=== PATIENT | male | born 1970 | race Caucasian/White ===

== ENCOUNTER → 2018-06-04 | Outpatient (CLI) | payer OTHER ==
[~2018-06-04] MED LIST: ACET-1311 PO; ATOR-22 PO; FLUC150T PO; METF750T PO; NICO4GUM7 OR; POTA75TA PO
== END | disposition home or self-care (01) ==
LOC: C.PATHSPEC 17:30
PROVIDERS: ATTEND Surgery
DX: L72.11 Pilar cyst (principal)

== ENCOUNTER → 2018-06-19 | Day surgery (SDC) | payer OTHER ==
[2018-06-16 11:59] VITALS: Ht 180.3 cm; Wt 127.3 kg
[~2018-06-19] VITALS: Ht 180.3 cm; Wt 127.3 kg
[~2018-06-19] MED LIST changes: +LIDOCAINE HCL 2% 2 ML VIAL (20MG/ML) ONE; +PROPOFOL IV EMULSION 10 MG/ML 20 ML VIAL ONE; +SODIUM CHLORIDE 0.9% 500ML 500 ML IV ONE
--- NOTE | 2018-06-19 13:42 | Endo History and Physical ---
History & Physical Date of Service: Jun 19, 2018. Chief Complaint: Rectal bleeding, blood in stool Referring Physician: Dr. Shorty Norman History of Present Illness 47 yo CM who presents for colonoscopy secondary to rectal bleeding. Past Surgical History Hx Cardiac Surgery: No Hx Internal Defibrillator: No Hx Pacemaker: No Hx Abdominal Surgery: No Hx of Implantable Prosthesis: No Hx Post-Op Nausea and Vomiting: No Hx Cancer Surgery: No Hx Thoracic Surgery: No Hx Orthopedic: No Hx Urinary Tract Surgery: No Family History Polyp Social History Smoking Status: Current Some Day Smoker Hx Substance Use: No (SOBER 26 YRS ) Hx Alcohol Use: No (SOBER 26 YRS) Allergies Coded Allergies: Penicillins (Verified Allergy, Mild, RASH, 06/16/18) Current Medications Reported Home Medications Medications Dose Route/Sig Max Daily Dose Days Date Category Nicorette (Nicotine Polacrilex) 4 Mg Gum 1 Piece OR DAILY 06/16/18 Reported Potassium 75 Mg Tab 1 Tab PO DAILY PRN 06/16/18 Reported Glucophage Er (Metformin Hcl) 750 Mg Tab 750 Mg PO QDD 06/16/18 Reported Diflucan (Fluconazole) 150 Mg Tab 150 Mg PO WK 06/16/18 Reported Lipitor (Atorvastatin Calcium) 20 Mg Tab 20 Mg PO QPM 06/16/18 Reported Tylenol (Acetaminophen) 325 Mg Tab 325 Mg PO DAILY PRN 06/16/18 Reported Vital Signs Weight (Kilograms): 127.27 Height (Feet): 5 Height (Inches): 11 Physical Exam General Appearance: WD/WN, no apparent distress Respiratory/Chest: Auscultation: breath sounds normal Cardiovascular: Heart Auscultation: RRR Abdomen: Bowel Sounds: normal Inspection & Palpation: soft, non-distended, no tenderness, guarding & rebound Assessment and Plan Assessment: 47 yo CM who presents for colonoscopy secondary to rectal bleeding. Plan: Proceed with colonoscopy.
--- NOTE | 2018-06-19 15:14 | Discharge Instructions ---
Endoscopy Patient Instructions Date / Procedure(s) Performed Jun 19, 2018. Colonoscopy Allergy Information Coded Allergies: Penicillins (Verified Allergy, Mild, RASH, 06/16/18) Discharge Date / Findings Jun 19, 2018. Multiple colon polyps Internal hemorrhoids Medication Instructions OK to resume all medications today as prescribed Reported Home Medications Medications Dose Route/Sig Max Daily Dose Days Date Category Nicorette (Nicotine Polacrilex) 4 Mg Gum 1 Piece OR DAILY 06/16/18 Reported Potassium 75 Mg Tab 1 Tab PO DAILY PRN 06/16/18 Reported Glucophage Er (Metformin Hcl) 750 Mg Tab 750 Mg PO QDD 06/16/18 Reported Diflucan (Fluconazole) 150 Mg Tab 150 Mg PO WK 06/16/18 Reported Lipitor (Atorvastatin Calcium) 20 Mg Tab 20 Mg PO QPM 06/16/18 Reported Tylenol (Acetaminophen) 325 Mg Tab 325 Mg PO DAILY PRN 06/16/18 Reported Provider Instructions Activity Restrictions - No exercising or heavy lifting for 24 hours. - Do not drink alcohol the day of the procedure. - Do not drive a car or operate machinery until the day after the procedure. - Do not make any important decisions or sign important papers in 24 hours after the procedure. Following Day: - Return to full activity which may include returning to work/school. Diet Start your diet with liquids and light foods (jello, soup, juice, toast). Then eat your usual diet if not nauseated. Treatment For Common After Affects For mild abdominal pain, bloating, or excessive gas: - Rest - Eat lightly - Lie on right side Follow-Up Information Follow-up with Dr. Shorty Norman as scheduled Anesthesia Information What You Should Know You have had a procedure that required some medicine to reduce anxiety and discomfort. This treatment is called moderate sedation. After receiving the treatment, you may be sleepy, but you will be able to breathe on your own. The effects of the treatment may last for several hours. Follow these instructions along with Activity/Diet recommendations noted above: * Do NOT do anything where dizziness or clumsiness would be dangerous. * Rest quietly at home today, then you can be up and about tomorrow. * Have a responsible person stay with you the rest of today. * You may have had an I.V. today. If so, you may take the dressing off later today. Recommendations Call your doctor if: * Trouble breathing * Continuous vomiting for more than 24 hours * Temperature above 101 degrees * Severe abdominal pain or bloating * Pain not relieved by pain medicine ordered * There is increased drainage or redness from any incision * A large amount of rectal bleeding greater than 2-3 tablespoons. (If you had a polyp/s removed or have hemorrhoids, a small amount of blood - from the rectum is to be expected.) * You have any unanswered questions or concerns. IN THE EVENT OF A SERIOUS EMERGENCY, GO TO THE NEAREST EMERGENCY ROOM Your discharge instructions were prepared by provider Jarod Fernandes. Patient Instructions Signature Page Capo Eldridge Patient (or Guardian) Signature/Date: I have read and understand the instructions given to me by my caregivers. Caregiver/RN/Doctor Signature/Date: The above-named patient and/or guardian has received patient instructions on this date. + Original Patient Signature Page (only) stays with chart. Please make copy for patient.
--- NOTE | 2018-06-19 15:22 | GI REPORT ---
Patient Name: Capo Eldridge Procedure Date: 06/19/2018 2:02 PM Date of : 1970 Admit Type: Outpatient Age: 47 Gender: Male Attending MD: Jarod Fernandes DO Procedure: Colonoscopy Providers: Jarod Fernandes DO Referring MD: Shorty Norman Indications: Rectal bleeding Medicines: Monitored Anesthesia Care Complications: No immediate complications. Estimated Blood Loss: Estimated blood loss: none. Procedure: Pre-Anesthesia Assessment: - Prior to the procedure, a History and Physical was performed, and patient medications and allergies were reviewed. The patient's tolerance of previous anesthesia was also reviewed. The risks and benefits of the procedure and the sedation options and risks were discussed with the patient. All questions were answered, and informed consent was obtained. Prior Anticoagulants: The patient has taken no previous anticoagulant or antiplatelet agents. ASA Grade Assessment: II - A patient with mild systemic disease. After reviewing the risks and benefits, the patient was deemed in satisfactory condition to undergo the procedure. After I obtained informed consent, the scope was passed under direct vision. Throughout the procedure, the patient's blood pressure, pulse, and oxygen saturations were monitored continuously. The scope was introduced through the anus and advanced to the terminal ileum. The colonoscopy was technically difficult and complex due to the patient's body habitus. The patient tolerated the procedure well. The quality of the bowel preparation was good. The terminal ileum, ileocecal valve, appendiceal orifice, and rectum were photographed. Findings: The perianal and digital rectal examinations were normal. Nineteen flat, pedunculated and sessile polyps were found in the rectum, sigmoid colon, descending colon, transverse colon and ascending colon. The polyps were 5 to 30 mm in size. These polyps were removed with a hot snare, both regular and jumbo sized. Resection and retrieval were complete with the aid of a freire net. Non-bleeding internal hemorrhoids were found during retroflexion. The hemorrhoids were small. Impression: - Ten 5 to 30 mm polyps in the rectum, in the sigmoid colon, in the descending colon, in the transverse colon and in the ascending colon, removed with a hot snare. Resected and retrieved. - Non-bleeding internal hemorrhoids. Recommendation: - Resume previous diet. - Continue present medications. - Repeat colonoscopy in 6 months for surveillance. - Return to primary care physician as previously scheduled. Jarod Fernandes, DO 06/19/2018 3:21:47 PM This report has been signed electronically. Note Initiated On: 06/19/2018 2:02 PM Number of Addenda: 0 I attest to the content of the Intraoperative Record and orders documented therein, exceptions below {[id number]}
--- NOTE | 2018-06-19 15:39 | Anesthesiology Progress Note ---
Anesthesia Post Op Note Date & Time Jun 19, 2018 at 15:39 Vital Signs Pain Intensity: 0 Vital Signs Past 12 Hours Date Time Temp Pulse Resp B/P (MAP) Pulse Ox O2 Delivery O2 Flow Rate FiO2 06/19/18 15:31 69 16 133/94 (107) 100 Room Air 06/19/18 15:14 77 16 128/81 (97) 98 Room Air 06/19/18 13:39 37 64 16 160/92 (114) 99 Room Air Notes Mental Status: alert / awake / arousable, participated in evaluation Pt Amnestic to Procedure: Yes Nausea / Vomiting: adequately controlled Pain: adequately controlled Airway Patency, RR, SpO2: stable & adequate BP & HR: stable & adequate Hydration State: stable & adequate Anesthetic Complications: no major complications apparent
[2018-06-19 15:45] VITALS: BP 139/81; PULSE 67; O2SAT 99
== END | disposition home or self-care (01) ==
LOC: C.GI 12:51
PROVIDERS: ATTEND Internal Medicine
DX: K62.5 Hemorrhage of anus and rectum (principal); D12.2 Benign neoplasm of ascending colon; D12.3 Benign neoplasm of transverse colon; D12.4 Benign neoplasm of descending colon; D12.5 Benign neoplasm of sigmoid colon; D12.8 Benign neoplasm of rectum; K64.8 Other hemorrhoids; E78.5 Hyperlipidemia, unspecified; F17.200 Nicotine dependence, unspecified, uncomplicated; K21.9 Gastro-esophageal reflux disease without esophagitis; E11.9 Type 2 diabetes mellitus without complications; Z88.0 Allergy status to penicillin

== ENCOUNTER 2025-01-31 16:35 | Observation (INO) ==
[2025-01-31 17:28] LABS: Basophils # (auto) 0.06 K/uL (0.00-0.20); Basophils % (auto) 0.6 %; Eosinophils # (auto) 0.24 K/uL (0.00-0.50); Eosinophils % (auto) 2.2 %; Hematocrit (blood only) 31.6 % (42.0-52.0); Hemoglobin 10.6 g/dl (14.0-18.0); Immature Granulocytes # (auto) 0.02 K/uL (0.01-0.20); Immature Granulocytes % (auto) 0.2 %; Lymphocytes # (auto) 2.88 K/uL (1.20-3.40); Lymphocytes % (auto) 26.7 %; Mean Corpuscular Hemoglobin 29.3 pg (25.0-34.0); Mean Corpuscular Hgb Conc 33.5 g/dL (32.0-36.0); Mean Corpuscular Volume 87.3 fL (80.0-100.0); Mean Platelet Volume 10.3 fL (9.4-12.4); Monocytes # (auto) 0.52 K/uL (0.11-0.59); Monocytes % (auto) 4.8 %; Neutrophils # (auto) 7.08 K/uL (1.40-6.50); Neutrophils % (auto) 65.5 %; Platelet Count 364 K/uL (130-400); RDW Coefficient of Variation 13.7 % (11.5-14.5); RDW Standard Deviation 43.8 fL (36.4-46.3); Red Blood Count 3.62 M/uL (4.70-6.10)
--- NOTE | 2025-01-31 17:40 | Emergency Department Note ---
Impression & Plan MAITE (acute kidney injury), Acute urinary retention, Abdominal pain, Anemia ED Provider Note NAME: GUMARO WATT AGE: 54 SEX: M : 1970 ARRIVES VIA: Walk-In INFORMANT: Patient ED PROVIDER(S): Adolfo Peña DO CHIEF COMPLAINT: Renal failure HPI: Patient is a 54-year-old male with a past medical history of diabetes, Raynaud's, hyperlipidemia, and obesity who presents to the ER referred in by his PCP for abnormal creatinine. He notes that over the past 2 months he has been having urinary urgency, frequency and overflow. He denies any headache or change in vision. No chest pain or shortness of breath. No nausea, vomiting, or diarrhea. He notes that he just had routine blood work and found the kidney failure and was referred in. ADDITIONAL HISTORY OBTAINED: Per HPI Chronic Medical/Social Conditions Affecting Care: Per HPI PAST MEDICAL HISTORY:See Below PAST SURGICAL HISTORY:See Below FAMILY HISTORY:See Below SOCIAL HISTORY:See Below HOME MEDICATIONS:See Below ALLERGIES:See Below VITALS:See Below PHYSICAL EXAMINATION: GENERAL: Sitting up in bed, alert, well appearing, well nourished, no distress, non-toxic EYE EXAM: normal conjunctiva. OROPHARYNX:mucous membranes are moist NECK: supple, no nuchal rigidity, no adenopathy, non-tender LUNGS: Clear to auscultation. Normal chest wall mechanics HEART: no murmurs, S1 normal and S2 normal ABDOMEN: abdomen soft, non-tender, normo-active bowel sounds, no masses, no rebound or guarding. UPPER EXTREMITIES: upper extremities are grossly normal. LOWER EXTREMITIES: No pitting edema. NEURO EXAM: Normal sensorium, cranial nerves II-XII grossly intact, normal speech, no gross weakness of arms, no gross weakness of legs. MEDICAL DECISION MAKING: Patient is a 54-year-old male who presents ER for the below stated complaint. IV was established blood work was obtained. Labs show no significant leukocytosis. Mild anemia 10.6. BMP with a creatinine of 2.15 up from baseline of 0.89. LFTs and bilirubin were unremarkable. Bladder scan showed greater than [address] head and pelvis showed distention of the bladder and ureters. Bo was placed and patient had nearly 3 L out. He was given IV fluids. He was updated bedside. Discussed case with Dr. varela for further evaluation management treatment and admission to the hospital. Patient was admitted for further workup. Consults/Care Managements Discussions: Per MDM Triage Nursing notes reviewed. Limited review of prior medical records performed Vital Signs: reviewed and remarkable for HTN Differential diagnosis: Infection, dehydration, metabolic abnormality, hypo/hyperglycemia, electrolyte disturbance, anemia, hypoxia, cardiac sources, intracerebral event, toxicologic, neurologic, as well as other pathologies. ER treatment provided: See below Diagnostics interpreted by me include EKG and cardiac monitoring as listed below: -Cardiac Monitoring: An order was placed for continuous cardiac monitoring. The monitor shows a rate of 80 with sinus rhythm. -ECG: none -Laboratory studies:Interpreted by me as stated above in MDM and shown below. Imaging studies: Xrays: As interpreted by me:none CTs show: CT abdomen pelvis per my pleurae interpretation showed a significantly distended bladder CT of the pelvis per radiologist described above Procedures:none Critical Care: None Past Med/Surg History Problem List (Updated 01/31/25 @ 22:30 by Adolfo Peña DO) Anemia (Acute) Abdominal pain (Acute) Acute urinary retention (Acute) MAITE (acute kidney injury) (Acute) Obstructive uropathy Diabetes Raynaud phenomenon Hematuria MENDEZ (dyspnea on exertion) Benign essential hypertension Elevated PSA Ventricular trigeminy Hypertriglyceridemia Vitamin D deficiency History of colon polyps Change in pigmented skin lesion of face Decreased libido BPH (benign prostatic hyperplasia) Recurrent cold sores Adult situational stress disorder Testosterone deficiency Type II diabetes mellitus (Chronic) Obesity Intertrigo Hyperlipidemia Alopecia Medical History (Updated 01/31/25 @ 22:30 by Adolfo Peña DO) Vitamin D deficiency Ventricular trigeminy follows with Dr. Sahni Recurrent cold sores BPH (benign prostatic hyperplasia) History of COVID-19 2021---mild symptoms, no symptoms now Pneumonia hx--resolved Hypertension History of colon polyps Diabetes mellitus, type 2 Hearing deficit 25% loss in left/35% loss in right Anxiety no meds Migraine Hyperlipidemia Surgical History (Updated 01/24/25 @ 07:50 by Lisbeth Tomlinson RN) Status post incision and drainage (01/20/25) I and D right posterior shoulder cyst, in office Dr. Cole FINAL DIAGNOSIS Skin, back (excision): - An inflamed epidermal cyst with focal abscess formation adjacent to the wall of the cyst is seen History of prostate biopsy per pt benign History of colonoscopy History of wisdom tooth extraction History of tonsillectomy Family History Father Family hx colonic polyps Hypertension Mother Family hx colonic polyps Uncle Family hx colonic polyps Stroke Colon cancer Grandmother (Maternal) Myocardial infarction Grandfather (Maternal) Myocardial infarction Sister Myeloproliferative disease Other No family history of adverse response to anesthesia Denies family history of Ovarian cancer Prostate cancer Breast cancer Social History (Updated 01/20/25 @ 09:28 by Lisbeth Tomlinson RN) Smoking Status: Former smoker Tobacco Type: Cigarettes and Smokeless Tobacco (Dip or Chew) Age Started Using Tobacco: 13; Age Quit Using Tobacco: 47; packs per day: 1; Second Hand Exposure: No (parents smoked); Do You Dip or Chew Tobacco: Yes (nicotine pouches (advised on policy)); Hx Alcohol Use: No Hx Substance Use: Yes Non-Prescribed Medications: Marijuana Preferred Language: Belarusian Communication Ability: Effective Visual Impairment: No Limitations Hearing Ability: Hard of Hearing Police Service Technician Required: No Beliefs That Will Affect Care: None marital status: Current Living Situation: Alone Current Living Situation Comment: Lives with child periodically current occupational status: employed current occupation: [employer]/ [employer] How many Children do You have: 0 Feels Safe at Home: Yes Childhood Exposure to Second-Hand Smoke: Yes Diet: low carbohydrate caffeine: Yes during the past year weight has: decreased > 10 lbs Dental Care, Regularly: Yes Physical Activity Frequency: 5-6 Times per Week Seatbelt Use: always Sunscreen Use: Yes Allergies Allergies Allergy/AdvReac Type Severity Reaction Status Date / Time Penicillins Allergy Mild RASH Verified 01/31/25 18:38 Home Meds Home Medications Medication Instructions Recorded Confirmed diphenhydramine 25 2 tab PO HS 12/04/18 01/31/25 mg-acetaminophen 500 mg tablet (Acetaminophen PM) cyanocobalamin (vitamin B-12) 1,000 mcg PO QAM #30 caps 08/25/19 01/31/25 1,000 mcg capsule blood sugar diagnostic (OneTouch #10 ea 01/16/21 01/18/25 Verio test strips) cholecalciferol (vitamin D3) 125 125 mcg PO QAM 10/01/21 01/31/25 mcg (5,000 unit) capsule multivitamin 1 tab PO QAM 10/01/21 01/31/25 metformin 500 mg tablet,extended 1,000 mg PO BID 01/31/25 01/31/25 release 24 hr semaglutide 1 mg/dose (4 mg/3 mL) 1 mg subcut WK 01/31/25 01/31/25 subcutaneous pen injector valacyclovir 1 gram tablet 2,000 mg PO DIRECTED PRN 01/31/25 01/31/25 Outbreak Previous Rx's Medication Instructions Recorded pen needle, diabetic 31 gauge x #50 ea 10/01/2101/30" (Comfort EZ Pen Martinez) finasteride 5 mg tablet 5 mg PO DAILY #90 tabs 08/31/24 atorvastatin 20 mg tablet 20 mg PO HS #90 tabs 11/03/24 tamsulosin 0.4 mg capsule 0.4 mg PO HS #90 caps 11/03/24 amlodipine 5 mg tablet 5 mg PO DAILY #90 tabs 01/18/25 Results & Data (ED) Vital Signs Vital Signs - 24 hr 01/31/25 16:43 01/31/25 19:10 Temperature 36.7 C Temperature Source Skin Pulse Rate 76 Pulse Rate [Apical] 75 Respiratory Rate 20 16 Respiratory Effort / Characteristics Non-Labored Spontaneous Respiratory Depth Normal Blood Pressure 201/105 H Blood Pressure [Right Arm] 183/113 H Blood Pressure Mean 137 Blood Pressure Mean [Right Arm] 136 Pulse Oximetry 97 100 Oxygen Delivery Method Room Air Room Air Sepsis New/Unexplained Change in Mental Status N/A Sepsis Action Taken by Nursing No Action Required Laboratory Data 01/31/25 17:05 01/31/25 17:05 Lab Results 01/31/25 Range/Units 17:05 WBC 10.80 (4.8-10.8) K/ul RBC 3.62 L (4.70-6.10) M/uL Hgb 10.6 L (14.0-18.0) g/dl Hct 31.6 L (42.0-52.0) % MCV 87.3 (80.0-100.0) fL MCH 29.3 (25.0-34.0) pg MCHC 33.5 (32.0-36.0) g/dL RDW Std Deviation 43.8 (36.4-46.3) fL RDW Coeff of Chaz 13.7 (11.5-14.5) % Plt Count 364 (130-400) K/uL MPV 10.3 (9.4-12.4) fL Immature Gran % (Auto) 0.2 % Neut % (Auto) 65.5 % Lymph % (Auto) 26.7 % Randall % (Auto) 4.8 % Eos % (Auto) 2.2 % Baso % (Auto) 0.6 % Neut # (Auto) 7.08 H (1.40-6.50) K/uL Lymph # (Auto) 2.88 (1.20-3.40) K/uL Randall # (Auto) 0.52 (0.11-0.59) K/uL Eos # (Auto) 0.24 (0.00-0.50) K/uL Baso # (Auto) 0.06 (0.00-0.20) K/uL Immature Gran # (Auto) 0.02 (0.01-0.20) K/uL Sodium 137 (136-145) mmol/L Potassium 4.1 (3.5-5.1) mmol/L Chloride 104 (98-107) mmol/L Carbon Dioxide 24 (21-32) mmol/L Anion Gap 9 (3-11) BUN 33 H (6-23) mg/dl Creatinine 2.15 H (0.6-1.4) mg/dl Est Cr Clr Drug Dosing 46.9 ml/min eGFR 35.69 BUN/Creatinine Ratio 15.3 (10-20) Glucose 79 (70-99(Fasting)) mg/dl Calcium 9.5 (8.6-10.3) mg/dl Total Bilirubin 0.2 (0.2-1.0) mg/dl AST 17 (13-39) U/L ALT 15 (7-52) U/L Alkaline Phosphatase 73 (34-104) U/L Total Protein 7.5 (6.0-8.3) gm/dl Albumin 4.7 (3.4-5.0) gm/dl Globulin 2.8 (2.5-4.0) gm/dl Albumin/Globulin Ratio 1.7 (0.9-2) Administered Medications Acetaminophen (Acetaminophen 325 Mg Tab) 650 mg PO Q4H PRN PRN Reason: pain/fever Stop: 03/02/25 19:47 Last Admin: 01/31/25 22:04 Dose: 650 mg Documented By: POP Atorvastatin Calcium (Atorvastatin 20 Mg Tab) 20 mg PO HS RISHI Stop: 03/02/25 21:12 Last Admin: 01/31/25 21:50 Dose: 20 mg Documented By: POP Insulin Aspart (Insulin Aspart Per Unit Charge) 0 units SC ACHS RISHI Stop: 03/02/25 21:12 Last Admin: 01/31/25 22:20 Dose: Not Given Documented By: POP Co-signed By: DEONDRE Tamsulosin HCl (Tamsulosin Hcl 0.4 Mg Cap) 0.4 mg PO HS RISHI Stop: 03/02/25 21:12 Last Admin: 01/31/25 21:50 Dose: 0.4 mg Documented By: POP Discontinued Medications Sodium Chloride (Nss) 1,000 mls @ 999 mls/hr IV .Q1H1M ONE Stop: 01/31/25 18:36 Last Infusion: 01/31/25 20:33 Dose: Infused Documented By: Admin: 01/31/25 18:17 Dose: 999 mls/hr Documented By: UBALDO Imaging Data Radiologist's Impression: Abdomen/Pelvis CT 01/31/25 17:35 Clinical History: Elevated creatinine Technique: Axial computed tomography images were obtained of the abdomen and pelvis without intravenous contrast. Comparison is made to the prior CT dated 06/03/2024 Findings: The liver is enlarged measuring 23.4 cm craniocaudal. There is no sign of cirrhosis or significant fatty infiltration. No definite liver mass lesion is seen on this noncontrast study. The gallbladder is decompressed. No bile duct dilatation is noted. The spleen is of normal size. No focal splenic lesion is evident. The pancreas appears normal with no sign of acute or chronic pancreatitis and no mass lesion noted. The pancreatic duct is of normal caliber. The adrenal glands appear unremarkable. No renal or proximal ureteral calculi are seen. There is severe bilateral hydronephrosis. No definite renal mass lesion is identified. The aorta is of normal caliber. No abdominal adenopathy is seen. The stomach appears normal. There is no sign of small bowel obstruction. The colon appears unremarkable. The appendix appears normal also. No free intraperitoneal fluid or air is identified. No distal ureteral or bladder calculi are seen. The bladder is markedly distended. No obvious bladder mass lesion is evident. The iliac arteries are of normal caliber. No pelvic adenopathy is noted. The prostate is enlarged measuring 5.8 cm in diameter. There are small bilateral inguinal hernias containing only fat There is a small area of centrilobular interstitial prominence in the right lower lobe, concerning for bronchopneumonia. There is a small pericardial effusion. No fracture is identified. No focal osseous lesion is seen Impression: 1. Severe bilateral hydronephrosis without visible obstructing calculus or mass. This is most likely due to the prominent distention of the urinary bladder that is present 2. Enlarged prostate. Correlation with PSA levels may be useful 3. Suspected right lower lobe bronchopneumonia 4. Small pericardial effusion 5. Hepatomegaly ACT 112: Positive. There are findings on this exam that require communication between the performing entity and the patient following Patient Test Result Information Act ([place] ACT 112) guidelines. Electronically signed by Reji Stewart 01-31-2025 6:17 PM Discharge Plan Visit Data Chief Complaint: Abnormal Labs/Diagnostic Testing Stated Complaint: REF BY DOC, HIGH CREATINITE ED Provider: Adolfo Peña Discharge Problem: MAITE (acute kidney injury), Acute urinary retention, Abdominal pain, Anemia Patient Disposition: Admitted As Inpatient Discharge Instructions Interventions: ED Discharge Assessment Last Done: 01/31/25 20:26 Discharge Problem: Abdominal pain Qualifiers: Abdominal location: unspecified location Qualified Code(s): R10.9 - Unspecified abdominal pain Anemia Qualifiers: Anemia type: unspecified type Qualified Code(s): D64.9 - Anemia, unspecified
[2025-01-31 17:50] LABS: Albumin Globulin Ratio 1.7 (0.9-2); Albumin Level 4.7 gm/dl (3.4-5.0); BUN Creatinine Ratio 15.3 (10-20); Bilirubin,Total 0.2 mg/dl (0.2-1.0); Calcium 9.5 mg/dl (8.6-10.3); Creatinine Clr Calc Pharmacy 46.9 ml/min; Globulin 2.8 gm/dl (2.5-4.0); Potassium 4.1 mmol/L (3.5-5.1); Total Protein 7.5 gm/dl (6.0-8.3)
[2025-01-31] MEDS: SODIUM CHLORIDE 0.9% 1,000 ML IV ONE (18:17)
--- NOTE | 2025-01-31 18:17 | CT Scan Report ---
Clinical History: Elevated creatinine Technique: Axial computed tomography images were obtained of the abdomen and pelvis without intravenous contrast. Comparison is made to the prior CT dated 06/03/2024 Findings: The liver is enlarged measuring 23.4 cm craniocaudal. There is no sign of cirrhosis or significant fatty infiltration. No definite liver mass lesion is seen on this noncontrast study. The gallbladder is decompressed. No bile duct dilatation is noted. The spleen is of normal size. No focal splenic lesion is evident. The pancreas appears normal with no sign of acute or chronic pancreatitis and no mass lesion noted. The pancreatic duct is of normal caliber. The adrenal glands appear unremarkable. No renal or proximal ureteral calculi are seen. There is severe bilateral hydronephrosis. No definite renal mass lesion is identified. The aorta is of normal caliber. No abdominal adenopathy is seen. The stomach appears normal. There is no sign of small bowel obstruction. The colon appears unremarkable. The appendix appears normal also. No free intraperitoneal fluid or air is identified. No distal ureteral or bladder calculi are seen. The bladder is markedly distended. No obvious bladder mass lesion is evident. The iliac arteries are of normal caliber. No pelvic adenopathy is noted. The prostate is enlarged measuring 5.8 cm in diameter. There are small bilateral inguinal hernias containing only fat There is a small area of centrilobular interstitial prominence in the right lower lobe, concerning for bronchopneumonia. There is a small pericardial effusion. No fracture is identified. No focal osseous lesion is seen Impression: 1. Severe bilateral hydronephrosis without visible obstructing calculus or mass. This is most likely due to the prominent distention of the urinary bladder that is present 2. Enlarged prostate. Correlation with PSA levels may be useful 3. Suspected right lower lobe bronchopneumonia 4. Small pericardial effusion 5. Hepatomegaly ACT 112: Positive. There are findings on this exam that require communication between the performing entity and the patient following Patient Test Result Information Act ([place] ACT 112) guidelines. Electronically signed by Reji Stewart 01-31-2025 6:17 PM
--- NOTE | 2025-01-31 19:15 | History & Physical Report ---
Date of Service January 31, 2025 Assessment & Plan (1) Obstructive uropathy: Plan: Capo Eldridge is a 54-year-old male with past medical history of type II DM, BPH, hyperlipidemia who was recommended for admission for obstructive MAITE. He has a history of BPH s/p biopsy without malignancy, has had evidence of urinary overflow incontinence for last few months and was referred for outpatient labs showing a creatinine greater than 2. After Davila placement decompressed for nearly 3 L by time of hospitalist assessment Obstructive MAITE Creatinine 2.15 - CTA/P: Severe bilateral hydronephrosis without visible obstructing calculus or mass. Known history of BPH as otherwise noted 2/2 BPH Patient has been decompressed of nearly 3 L in the ER and condition of rapid output, and was with some hypertension. Due to large volume fluid shift, hypertension, and MAITE will observe overnight and ensure BMP is stable in the morning, renal function improving, and can likely progress to outpatient neurology follow-up if otherwise well. BPH History of BPH, 95 cc prostate. Biopsy did not show evidence of malignancy Was on finasteride, developed urinary incontinence and thought this may have been due to the medications and discontinued this - Davila catheter placed - Urology consulted Hypertension BP 201/105 Asymptomatic On recheck s/p Davila placement is improving and has come down to 160 systolic Will continue home medications. Has had somewhat poor control since switching from lisinopril to amlodipine although has had good benefit to his Raynaud's on amlodipine Once renal function normalizes consider adding back lisinopril versus ARB DVT prophylaxis: SCDs Disposition: MSO. CODE STATUS: DO NOT RESUSCITATE, but okay with intubation for temporary/reversible causes Diet: Regular (2) Raynaud phenomenon: (3) Diabetes: History of Present Illness Primary Care Provider: Lucian Regalado, TANIA, CECILIA Had seen Dr. Niño int he past for elevated PSA. Had a biopsy at that time. Had hematuria and a davila. Hx prostate MRI with 98cc gland. MRI fusion guided biopsy on 02/27/2024 --> benign. Gross hematuria --> CT urogram --> mild bilateral hydroureteronephrosis and no upper tract lesions. Initially decided on a TURP but cancelled 2/2 improvement. Discussed finasteride vs TURP at last followup. BP was 160s last few checks in the office. Was previously on lisinopril, switched to amlodipine which helps with his Reynauds. 2 months of incontinence. Has been on finasteride. Thought it would take ~3 months to get to full effect. At 2 months had some incontience and 'leakage'. Started noticing if he didnt pee as soon as he had even a slight urge would have incontinence. Then was having nighttime incontinence. Stopped taking the finasteride thinking it was contributing. Did not improve Referred to the ER after outpatient labs showed an MAITE No cough, dyspnea, fevers, chills, sweats, abd pain Medical History: Reviewed Medications: Reviewed Surgical History: Reviewed Family history: Reviewed Allergies: Reviewed. Allergic to PCN, childhood allergy Social History: no tobacco. Code Status: DNR. OK with intubation for reversible causes. LIsted as conditional code. Allergies Allergy/AdvReac Type Severity Reaction Status Date / Time Penicillins Allergy Mild RASH Verified 01/31/25 18:38 Home Medications Medication Instructions Recorded Confirmed Type diphenhydramine 25 2 tab PO HS 12/04/18 01/31/25 History mg-acetaminophen 500 mg tablet (Acetaminophen PM) cyanocobalamin (vitamin B-12) 1,000 mcg PO QAM #30 caps 08/25/19 01/31/25 History 1,000 mcg capsule blood sugar diagnostic (OneTouch #10 ea 01/16/21 01/18/25 History Verio test strips) cholecalciferol (vitamin D3) 125 125 mcg PO QAM 10/01/21 01/31/25 History mcg (5,000 unit) capsule multivitamin 1 tab PO QAM 10/01/21 01/31/25 History pen needle, diabetic 31 gauge x #50 ea 10/01/21 01/18/25 Rx 3/16" (Comfort EZ Pen [place]) finasteride 5 mg tablet 5 mg PO DAILY #90 tabs 08/31/24 01/31/25 Rx atorvastatin 20 mg tablet 20 mg PO HS #90 tabs 11/03/24 01/31/25 Rx tamsulosin 0.4 mg capsule 0.4 mg PO HS #90 caps 11/03/24 01/31/25 Rx amlodipine 5 mg tablet 5 mg PO DAILY #90 tabs 01/18/25 01/31/25 Rx metformin 500 mg tablet,extended 1,000 mg PO BID 01/31/25 01/31/25 History release 24 hr semaglutide 1 mg/dose (4 mg/3 mL) 1 mg subcut WK 01/31/25 01/31/25 History subcutaneous pen injector valacyclovir 1 gram tablet 2,000 mg PO DIRECTED PRN 01/31/25 01/31/25 History Outbreak Past Med/Surg History Problem List (Updated 01/31/25 @ 19:40 by Clifford Kim MD) Obstructive uropathy Diabetes Raynaud phenomenon Hematuria MENDEZ (dyspnea on exertion) Benign essential hypertension Elevated PSA Ventricular trigeminy Hypertriglyceridemia Vitamin D deficiency History of colon polyps Change in pigmented skin lesion of face Decreased libido BPH (benign prostatic hyperplasia) Recurrent cold sores Adult situational stress disorder Testosterone deficiency Type II diabetes mellitus (Chronic) Obesity Intertrigo Hyperlipidemia Alopecia Medical History (Updated 01/31/25 @ 19:40 by Clifford Kim MD) Vitamin D deficiency Ventricular trigeminy follows with Dr. Sahni Recurrent cold sores BPH (benign prostatic hyperplasia) History of COVID-2021---mild symptoms, no symptoms now Pneumonia hx--resolved Hypertension History of colon polyps Diabetes mellitus, type 2 Hearing deficit 25% loss in left/35% loss in right Anxiety no meds Migraine Hyperlipidemia Surgical History (Updated 01/24/25 @ 07:50 by Lisbeth Tomlinson RN) Status post incision and drainage (01/20/25) I and D right posterior shoulder cyst, in office Dr. Cole FINAL DIAGNOSIS Skin, back (excision): - An inflamed epidermal cyst with focal abscess formation adjacent to the wall of the cyst is seen History of prostate biopsy per pt benign History of colonoscopy History of wisdom tooth extraction History of tonsillectomy Family History Father Family hx colonic polyps Hypertension Mother Family hx colonic polyps Uncle Family hx colonic polyps Stroke Colon cancer Grandmother (Maternal) Myocardial infarction Grandfather (Maternal) Myocardial infarction Sister Myeloproliferative disease Other No family history of adverse response to anesthesia Denies family history of Ovarian cancer Prostate cancer Breast cancer Social History (Updated 01/20/25 @ 09:28 by Lisbeth Tomlinson, SREEDHAR) Smoking Status: Former smoker Tobacco Type: Cigarettes and Smokeless Tobacco (Dip or Chew) Age Started Using Tobacco: 13; Age Quit Using Tobacco: 47; packs per day: 1; Second Hand Exposure: No (parents smoked); Do You Dip or Chew Tobacco: Yes (nicotine pouches (advised on policy)); Hx Alcohol Use: No Hx Substance Use: Yes Non-Prescribed Medications: Marijuana Preferred Language: Cook Islander Communication Ability: Effective Visual Impairment: No Limitations Hearing Ability: Hard of Hearing Brickmason Required: No Beliefs That Will Affect Care: None marital status: Current Living Situation: Alone Current Living Situation Comment: Lives with child periodically current occupational status: employed 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 NAD. Cooperative. HEENT: Atraumatic, normocephalic. Pulm: CTAB A&P. -wheezes, -rales, -rhonchi. Symmetrical chest rise. No increased work of breathing. No respiratory distress. Cardiac: RRR, -mrg. Radial pulses intact and symmetrical. Abdominal: Nontender, nondistended, soft. BS present. : Davila in place. nearly 3L total output so far, yellow urine currenly 800cc in davila bag Results & Data Results & Data Vital Signs (Past 12 Hours) Vital Signs Temp Pulse Resp BP Pulse Ox O2 Del Method 01/31/25 16:43 36.7 C 76 20 201/105 H 97 Room Air PG Care Time/CCT Total # of Minutes Spent Total Time Spent with Patient: Total time spent is greater than 50% in coordination of care (as documented) at patient's floor/unit and/or counseling patient: Coding Level of Care Code 25609 INT INP/OBS CARE 375MIN Diagnoses Obstructive uropathy N13.9 Raynaud phenomenon I73.00 Diabetes E11.9
[2025-01-31] MEDS ORDERED: GLUCOSE 40% GEL 15 GM TUBE PO PRN (21:13)
[2025-01-31] MEDS ORDERED: DEXTROSE 50% 50 ML SYRINGE IV PRN (21:13)
[2025-01-31] MEDS ORDERED: GLUCOSE 10 TAB/TUBE PO PRN (21:13)
[2025-01-31] MEDS ORDERED: CARBOHYDRATES FOR HYPOGLYCEMIA PO PRN (21:13)
[2025-01-31] MEDS ORDERED: GLUCAGON FOR INJ 1 MG VIAL SQ PRN (21:13)
[2025-01-31] MEDS: ATORVASTATIN 20 MG TAB PO SCH (21:50)
[2025-01-31] MEDS: TAMSULOSIN HCL 0.4 MG CAP PO SCH (21:50)
[2025-01-31] MEDS: ACETAMINOPHEN 325 MG TAB PO PRN (22:04)
[2025-01-31] MEDS: INSULIN ASPART PER UNIT CHARGE SC SCH (22:20)
[2025-02-01 07:37] VITALS: PULSE 71; RESP 18; O2SAT 99
[2025-02-01 07:50] VITALS: BP 165/85; TEMP 97.8
[2025-02-01 07:53] LABS: Basophils # (auto) 0.04 K/uL (0.00-0.20); Basophils % (auto) 0.3 %; Eosinophils # (auto) 0.12 K/uL (0.00-0.50); Hematocrit (blood only) 32.7 % (42.0-52.0); Hemoglobin 10.8 g/dl (14.0-18.0); Immature Granulocytes # (auto) 0.04 K/uL (0.01-0.20); Immature Granulocytes % (auto) 0.3 %; Lymphocytes # (auto) 2.16 K/uL (1.20-3.40); Lymphocytes % (auto) 18.3 %; Mean Corpuscular Hemoglobin 28.3 pg (25.0-34.0); Mean Corpuscular Volume 85.8 fL (80.0-100.0); Mean Platelet Volume 10.7 fL (9.4-12.4); Monocytes % (auto) 5.1 %; Neutrophils # (auto) 8.84 K/uL (1.40-6.50); Platelet Count 359 K/uL (130-400); RDW Coefficient of Variation 13.8 % (11.5-14.5); RDW Standard Deviation 42.8 fL (36.4-46.3); Red Blood Count 3.81 M/uL (4.70-6.10)
[2025-02-01] MEDS: CYANOCOBALAMIN (B-12) 500 MCG TABLET PO SCH (07:57)
[2025-02-01] MEDS: CHOLECALCIFEROL 125 MCG (5,000 UNITS) TAB PO SCH (07:57)
[2025-02-01] MEDS: amLODIPine BESYLATE 5 MG TAB PO SCH (07:57)
[2025-02-01] MEDS: MULTIVITAMIN TAB PO SCH (07:57)
[2025-02-01 08:04] LABS: BUN Creatinine Ratio 14.3 (10-20); Calcium 9.3 mg/dl (8.6-10.3); Creatinine Clr Calc Pharmacy 52.3 ml/min; Potassium 4.5 mmol/L (3.5-5.1)
--- NOTE | 2025-02-01 08:05 | Urology Consultation ---
Date of Consultation February 01, 2025 Assessment & Plan (1) Acute urinary retention: (2) MAITE (acute kidney injury): (3) Obstructive uropathy: 54-year-old male with BPH and history of elevated PSA admitted for MAITE and acute urinary retention. Large volume urinary retention, MAITE, bilateral hydronephrosis Labs reviewedcreatinine downtrending, 1.89 today Bo catheter in place for management of urinary retention Recommend maintain catheter upon discharge until follow-up with urology He has scheduled follow-up next week with urology officekeep as scheduled We discussed setting up transurethral resection of prostate to address bladder outlet obstruction as previously discussed with Dr. Niño Patient can be discharged with Bo catheter when medically stable Continue finasteride will sign off, please contact our service with any additional questions or concerns History of Present Illness Reason for Consultation: urinary retention Attending Physician: Jono Mehta MD History of Present Illness This is a 54-year-old male who follows with urology for BPH and elevated PSA. He underwent an MRI of the prostate which showed a PI-RADS 3 lesion and a 98 cc gland. He underwent MRI fusion guided biopsy on 02/27/2024, which was benign. He had an office cystoscopy on 06/08/2024 as part of a hematuria workup, which revealed trilobar hyperplasia with obstruction. He was started on finasteride and there was discussion of setting up transurethral resection of prostate in the spring when [place]. He has been experiencing bothersome lower urinary tract symptoms for the past several months and was referred to the emergency department on 01/31/25 by his PCP for abnormal creatinine on outpatient labs. On arrival to ED, he was afebrile, hypertensive. Lab work showed WBC 10.8, hemoglobin 10.6, creatinine 2.15. Workup included CT abdomen pelvis which showed severe bilateral hydronephrosis without visible obstructing calculus or mass. Bladder distended, enlarged prostate noted. Bo catheter was placed in ED with nearly 3 L of urinary output. He was admitted to the hospital medicine service for MAITE and urinary retention. Urology is consulted for urinary retention. Patient seen and examined at bedside this morning. He is awake, alert and resting in bed. He is generally tolerating Bo catheter. He reports experiencing bothersome urinary symptoms with urinary frequency, urgency, and incontinence. He stopped taking finasteride after approximately 2 months as he attributed his symptoms to the medication. No fever or chills. Allergies Allergy/AdvReac Type Severity Reaction Status Date / Time Penicillins Allergy Mild RASH Verified 01/31/25 18:38 Home Medications Medication Instructions Recorded Confirmed Type diphenhydramine 25 2 tab PO HS 12/04/18 01/31/25 History mg-acetaminophen 500 mg tablet (Acetaminophen PM) cyanocobalamin (vitamin B-12) 1,000 mcg PO QAM #30 caps 08/25/19 01/31/25 History 1,000 mcg capsule blood sugar diagnostic (OneTouch #10 ea 01/16/21 01/18/25 History Verio test strips) cholecalciferol (vitamin D3) 125 125 mcg PO QAM 10/01/21 01/31/25 History mcg (5,000 unit) capsule multivitamin 1 tab PO QAM 10/01/21 01/31/25 History pen needle, diabetic 31 gauge x #50 ea 10/01/21 01/18/25 Rx 3/16" (Comfort EZ Pen [place]) finasteride 5 mg tablet 5 mg PO DAILY #90 tabs 08/31/24 01/31/25 Rx atorvastatin 20 mg tablet 20 mg PO HS #90 tabs 11/03/24 01/31/25 Rx tamsulosin 0.4 mg capsule 0.4 mg PO HS #90 caps 11/03/24 01/31/25 Rx amlodipine 5 mg tablet 5 mg PO DAILY #90 tabs 01/18/25 01/31/25 Rx metformin 500 mg tablet,extended 1,000 mg PO BID 01/31/25 01/31/25 History release 24 hr semaglutide 1 mg/dose (4 mg/3 mL) 1 mg subcut WK 01/31/25 01/31/25 History subcutaneous pen injector valacyclovir 1 gram tablet 2,000 mg PO DIRECTED PRN 01/31/25 01/31/25 History Outbreak Patient History Medical History Vitamin D deficiency Ventricular trigeminy follows with Dr. Sahni Recurrent cold sores BPH (benign prostatic hyperplasia) History of COVID-2021---mild symptoms, no symptoms now Pneumonia hx--resolved Hypertension History of colon polyps Diabetes mellitus, type 2 Hearing deficit 25% loss in left/35% loss in right Anxiety no meds Migraine Hyperlipidemia Surgical History Status post incision and drainage (01/20/25) I and D right posterior shoulder cyst, in office Dr. Cole FINAL DIAGNOSIS Skin, back (excision): - An inflamed epidermal cyst with focal abscess formation adjacent to the wall of the cyst is seen History of prostate biopsy per pt benign History of colonoscopy History of wisdom tooth extraction History of tonsillectomy Family History Father Family hx colonic polyps Hypertension Mother Family hx colonic polyps Uncle Family hx colonic polyps Stroke Colon cancer Grandmother (Maternal) Myocardial infarction Grandfather (Maternal) Myocardial infarction Sister Myeloproliferative disease Other No family history of adverse response to anesthesia Denies family history of Ovarian cancer Prostate cancer Breast cancer Social History Smoking Status: Never smoker Tobacco Type: Cigarettes and Smokeless Tobacco (Dip or Chew) Age Started Using Tobacco: 13; Age Quit Using Tobacco: 47; packs per day: 1; Second Hand Exposure: No (parents smoked); Do You Dip or Chew Tobacco: Yes (nicotine pouches (advised on policy)); Hx Alcohol Use: No Hx Substance Use: No Preferred Language: Serbian Communication Ability: Effective Visual Impairment: No Limitations Hearing Ability: Hard of Hearing Beverage Specialist Required: No Beliefs That Will Affect Care: None marital status: Current Living Situation: Alone Current Living Situation Comment: Home current occupational status: employed 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 How many Children do You have: 0 Feels Safe at Home: Yes Childhood Exposure to Second-Hand Smoke: Yes Diet: low carbohydrate caffeine: Yes during the past year weight has: decreased > 10 lbs Dental Care, Regularly: Yes Physical Activity Frequency: 5-6 Times per Week Seatbelt Use: always Sunscreen Use: Yes Assistive Devices: None Review of Systems Review of Systems: All systems reviewed & are unremarkable except as noted in HPI & below Physical Exam Constitutional: well developed and well nourished; no acute distress Respiratory: normal respiratory effort; no respiratory distress and no labored breathing Gastrointestinal (Abdomen): Inspection/Auscultation: abdomen normal to inspection Musculoskeletal: Head/Neck/Chest: normocephalic Neurologic: moves all extremities and awake Psychiatric: Orientation: alert and oriented x 3 Genitourinary: Bo patent and draining yellow urine with slight pink tinge Results & Data Vital Signs (Past 12 Hours) Vital Signs Temp Pulse Pulse Resp BP BP Pulse Ox 02/01/25 07:49 36.6 C 165/85 H 02/01/25 07:34 71 18 99 02/01/25 07:19 37.0 C 76 16 178/89 H 98 01/31/25 20:45 36.7 C 83 20 178/105 H 100 01/31/25 20:26 78 16 188/115 H 100 O2 Del Method 02/01/25 07:49 02/01/25 07:34 Room Air 02/01/25 07:19 Room Air 01/31/25 20:45 Room Air 01/31/25 20:26 Room Air PG Care Time/CCT Total # of Minutes Spent Total Time Spent with Patient: Total time spent is greater than 50% in coordination of care (as documented) at patient's floor/unit and/or counseling patient: Coding Level of Care Code 14033 IN/OBS CONSULT LVL 4,60M Diagnoses Acute urinary retention R33.8 MAITE (acute kidney injury) N17.9 Obstructive uropathy N13.9
--- NOTE | 2025-02-01 10:40 | Discharge Summary ---
Discharge Summary Date of Service February 01, 2025 Principal Dx & Hospital Course #1 = Principal Diagnosis (1) Obstructive uropathy: Capo Eldridge is a 54-year-old male with past medical history of type II DM, BPH, hyperlipidemia who was recommended for admission for obstructive MAITE. He has a history of BPH s/p biopsy without malignancy, has had evidence of urinary overflow incontinence for last few months and was referred for outpatient labs showing a creatinine greater than 2. After Davila placement decompressed for nearly 3 L by time of hospitalist assessment Obstructive MAITE Creatinine 2.15 --> improved to 1.89 on discharge. Anticipate creatinine will continue to downtrend to baseline now that davila has been placed. - CTA/P: Severe bilateral hydronephrosis without visible obstructing calculus or mass. Known history of BPH as otherwise noted 2/ BPH -Urology consulted, patient to follow up outpatient next week, maintain davila catheter until then. BPH History of BPH, Biopsy did not show evidence of malignancy Was on finasteride, developed urinary incontinence and thought this may have been due to the medications and stopped --> recommended to continue on discharge - Davila catheter placed Hypertension Will continue home medications. Has had somewhat poor control since switching from lisinopril to amlodipine although has had good benefit to his Raynaud's on amlodipine Once renal function normalizes consider adding back lisinopril versus ARB, monitor BP on dc, follow up with PCP for further recommendations. Discharged home 02/01. (2) Raynaud phenomenon: (3) Diabetes: Admission HPI Per Admitting Provider Had seen Dr. Niño int he past for elevated PSA. Had a biopsy at that time. Had hematuria and a davila. Hx prostate MRI with 98cc gland. MRI fusion guided biopsy on 02/27/2024 --> benign. Gross hematuria --> CT urogram --> mild bilateral hydroureteronephrosis and no upper tract lesions. Initially decided on a TURP but cancelled 2/2 improvement. Discussed finasteride vs TURP at last followup. BP was 160s last few checks in the office. Was previously on lisinopril, switched to amlodipine which helps with his Reynauds. 2 months of incontinence. Has been on finasteride. Thought it would take ~3 months to get to full effect. At 2 months had some incontience and 'leakage'. Started noticing if he didnt pee as soon as he had even a slight urge would have incontinence. Then was having nighttime incontinence. Stopped taking the finasteride thinking it was contributing. Did not improve Referred to the ER after outpatient labs showed an MAITE No cough, dyspnea, fevers, chills, sweats, abd pain Medical History: Reviewed Medications: Reviewed Surgical History: Reviewed Family history: Reviewed Allergies: Reviewed. Allergic to PCN, childhood allergy Social History: no tobacco. Code Status: DNR. OK with intubation for reversible causes. LIsted as conditional code. Discharge Exam Constitutional WD/WN, vitals as above Eyes PERRL, conjunctivae normal, anicteric sclerae Respiratory breathing unlabored Cardiovascular well perfused Psychiatric A+Ox3, euthymic affect Discharge Plan Discharge Items Patient Disposition: Home - Self-Care Reason For Visit: OBSTRUCTIVE MAITE Discharge Diagnosis: Obstructive MAITE Activity: Resume your previous activity Non-emergency contact: Primary Care Provider and Urologist Call non-emergency contact if: you have any medication questions and your symptoms worsen Follow-up/Referrals: Lucian Regalado III, CRNP [Primary Care Provider] - 02/08/25 9:20 am Diet: Regular Addtl Attending Provider Instructions: Mr. Eldridge, You were recently hospitalized after your lab work revealed you had an acute kidney injury. This was secondary to retaining urine from BPH. Urology was consulted and a davila catheter has been placed. Following the placement of the catheter your lab work improved. Please resume your Finasteride upon discharge. Please follow up with urology at your office visit in 1 week. Your catheter will remain in place until this appointment. You may resume the remainder of your home medications. - Your blood pressure has been elevated in the hospital. Please monitor this at home and report your readings to your PCP. You may require an increase in your amlodipine. If you develop any worsening symptoms including unable to urinate through davila, abdominal pain, chest pain, shortness of breath please report back to the ER for further care. Sincerely, Evelyn Leo PA-C Pending Studies at Discharge: No Stand-Alone Forms: [employer], Smoking Cessation Medications and DC Order Prescriptions: Continued atorvastatin 20 mg tablet 20 mg PO HS Qty: 90 3RF tamsulosin 0.4 mg capsule 0.4 mg PO HS Qty: 90 3RF cholecalciferol (vitamin D3) 125 mcg (5,000 unit) capsule 125 mcg PO QAM multivitamin Tablet 1 tab PO QAM cyanocobalamin (vitamin B-12) 1,000 mcg capsule 1,000 mcg PO QAM Qty: 30 finasteride 5 mg tablet 5 mg PO DAILY Qty: 90 3RF amlodipine 5 mg tablet 5 mg PO DAILY Qty: 90 3RF diphenhydramine-acetaminophen [Acetaminophen PM] 25-500 mg Tablet 2 tab PO HS valacyclovir 1 gram tablet 2,000 mg PO DIRECTED PRN (Reason: Outbreak) Rx Instructions: TAKE 2 TABLETS BY MOUTH EVERY 12 HOURS FOR 1 DAY NEEDED metformin 500 mg tablet extended release 24 hr 1,000 mg PO BID semaglutide 1 mg/dose (4 mg/3 mL) pen injector 1 mg subcut WK Patient Comments: takes on fridays Rx Instructions: WEDNESDAYS No Action (DME) pen needle, diabetic [Comfort EZ Pen [employer]] 31 gauge x 3/16" needle See Dose Instructions .ROUTE .MEDSUPPLY Qty: 50 0RF Dose Instruction: As directed Rx Instructions: Use once weekly with ozempic (DME) OneTouch Verio test strips Strip See Rx Instructions .ROUTE .MEDSUPPLY Qty: 10 Rx Instructions: Test blood sugars 3 times a day Discharge Orders: Discharge Order (Routine); Ordered 02/01/25 Ordered By: Evelyn Mercado/Other Patient Handouts: Urinary Catheter Bag Empty Clean, Leg Bag Care Dc Admission Data Admit Date/Time: 01/31/25 19:49 Attending Provider: Jono Mehta Admit Provider: Clifford Kim Primary Care Provider: Lucian Regalado III Other Providers: Clifford Kim; Wale Gyale Other Interventions: Discharge Summary Assessment (RN) Last Done: 02/01/25 10:49 Hospital Stay Data Consultations 01/31/25 18:25 ED Decision to Admit Stat 01/31/25 21:13 Consult Urology Routine Diagnostic Imagining Performed 01/31/25 17:35 CT abd pelvis wo con Stat Pending Results Patient Have Any Pending Studies at Discharge: No Discharge Instructions Given to Patient (Per Discharging Provider) Mr. Eldridge, You were recently hospitalized after your lab work revealed you had an acute kidney injury. This was secondary to retaining urine from BPH. Urology was consulted and a davila catheter has been placed. Following the placement of the catheter your lab work improved. Please resume your Finasteride upon discharge. Please follow up with urology at your office visit in 1 week. Your catheter will remain in place until this appointment. You may resume the remainder of your home medications. - Your blood pressure has been elevated in the hospital. Please monitor this at home and report your readings to your PCP. You may require an increase in your amlodipine. If you develop any worsening symptoms including unable to urinate through daivla, abdominal pain, chest pain, shortness of breath please report back to the ER for further care. Sincerely, Evelyn Leo PA-C Total Time Total Time Spent Total Time Spent (In Minutes): 45 Total Time Includes: Examination of the Patient, Discharge Planning, Medication Reconciliation and Communication With Other Providers Coding Level of Care Code 28667 INP/OBS DISCH >30 MIN Diagnoses Obstructive uropathy N13.9 Raynaud phenomenon I73.00 Diabetes E11.9
== END 2025-02-01 12:08 | disposition home or self-care (01) | DRG 683 ==
LOC: ED 16:35 → INTOOBSV 19:49 → SUATTDRO 19:49 → 3N 19:49